=== PATIENT | female | born 1990 | race Caucasian/White ===

== ENCOUNTER 2018-10-25 22:54 | Emergency (ER) | payer OTHER ==
[2018-10-25 23:47] VITALS: BMI 35.8
--- NOTE | 2018-10-26 00:39 | PDOC ---
History of Present Illness - General Chief Complaint: Pain Stated Complaint: PAIN Time Seen by Provider: 10/26/18 00:32 - History of Present Illness Initial Comments: 10/26/18 00:39 28 yo F with no significant pmh who p/w suprapubic pain and fever x 2 days. Patient with 2 days of dysuria, suprpapubic discomfort, increased urinary frequency, and fevers. Also endorses nausea without vomiting, decreased PO intake, and lower back pain x 2 days. Reports h/o 2 UTIs in past. currently menstruating. Denies PO medication intake. Patient denies COLON, vision change, palpitations, cough, wheezing, orthopena, PND , leg swelling/pain, CP, SOB, uhematuria, BPR, vaginal discharge/irritation/ itching, diarrhea, constipation, lightheadedness, weakness, sensory changes. PMHx: as noted above. H/o laproscopic procedure pelvic. ROS: as noted SHx: Denies Etoh, IVDA, Tobacco use Allergies: Sulfa medications Past History - Past Medical History Allergies/Adverse Reactions: Allergies Allergy/AdvReac Type Severity Reaction Status Date / Time Sulfa (Sulfonamide Allergy Verified 10/26/18 01:28 Antibiotics) Home Medications: Ambulatory Orders Ciprofloxacin [Cipro -] 500 mg PO Q12H #14 tablet MDD 2 tab 10/26/18 Ibuprofen 600 mg PO QID PRN #28 tablet MDD 4 tab 10/26/18 Ondansetron [Zofran Odt -] 4 mg SL BID #14 od.tablet 10/26/18 - Suicide/Smoking/Psychosocial Hx Smoking History: Never smoked Have you smoked in the past 12 months: No Information on smoking cessation initiated: No Hx Alcohol Use: No Drug/Substance Use Hx: No Review of Systems - Review of Systems Comments:: 10/26/18 00:38 GENERAL/CONSTITUTIONAL: + fever. No chills. No weakness. HEAD, EYES, EARS, NOSE AND THROAT: No change in vision. No ear pain or discharge. No sore throat. CARDIOVASCULAR: No chest pain or shortness of breath RESPIRATORY: No cough, wheezing, or hemoptysis. GASTROINTESTINAL: +nausea. No vomiting, diarrhea or constipation. GENITOURINARY: + dysuria, frequency, and change in urination. MUSCULOSKELETAL: No joint or muscle swelling or pain. No neck or back pain. SKIN: No rash NEUROLOGIC: No headache, vertigo, loss of consciousness, or change in strength/ sensation. ENDOCRINE: No increased thirst. No abnormal weight change HEMATOLOGIC/LYMPHATIC: No anemia, easy bleeding, or history of blood clots. ALLERGIC/IMMUNOLOGIC: No hives or skin allergy. *Physical Exam - Vital Signs Last Vital Signs Temp Pulse Resp BP Pulse Ox 101.1 F H 100 H 20 107/70 98 10/25/18 23:45 10/25/18 23:45 10/25/18 23:45 10/25/18 23:45 10/25/18 23:45 - Physical Exam Comments: 10/26/18 00:38 GENERAL: Awake, alert, and fully oriented, in no acute distress HEAD: No signs of trauma, normocephalic, atraumatic EYES: PERRLA, EOMI, sclera anicteric, conjunctiva clear ENT:Hearing grossly normal, nares patent, oropharynx clear without exudates. Moist mucosa NECK: Normal ROM, supple, no lymphadenopathy, JVD, or masses LUNGS: No distress, speaks full sentences, clear to auscultation bilaterally HEART: Regular rate and rhythm, normal S1 and S2, no murmurs, rubs or gallops, peripheral pulses normal and equal bilaterally. ABDOMEN:+ suprpapubic ttp, and right sided flank ttp. Soft, NDS, normoactive bowel sounds. No guarding, no rebound. No masses EXTREMITIES : Normal inspection, Normal range of motion, no edema. No clubbing or cyanosis. NEUROLOGICAL: Cranial nerves II through XII grossly intact. Normal speech, normal gait, no focal sensorimotor deficits SKIN: Warm, Dry, normal turgor, no rashes or lesions noted ED Treatment Course - LABORATORY CBC & Chemistry Diagram: 10/26/18 00:52 10/26/18 01:18 - RADIOLOGY Radiograph Interpretation: 10/26/18 04:57 Patient Information: : 1990 Order Type: Preliminary Name: LESLEY SIERRA Sex: F Study Description: CT ABDOMEN AND PELVIS Modality: CT Location: [facility] Referring Physician: BARB LAM Comments: Genny Simon MD wrote on Oct 26, 2018 at 04:00 AM: Referring Physician: BARB LAM Patient Name: GRACY SUTTON THIS IS A PRELIMINARY REPORT FROM IMAGING GRANULATOR OPERATOR DATE OF SERVICE: 2018-10-26 03:20:48 IMAGES: [id number] EXAM: CT ABDOMEN AND PELVIS WITHOUT CONTRAST 4.1 x 2.7 x 3.7 cm soft tissue density posterior cul-de-sac, possibly normal small bowel loops but cannot exclude mass. Consider ultrasound correlation. Unremarkable uterus and ovaries. Small stones versus artifacts right kidney. No ureterolithiasis or obstructive uropathy. No bladder calculi. Unremarkable pancreas and gallbladder. No bowel obstruction, colitis, free fluid or free air. Normal appendix. Few diverticula colon. Hepatomegaly. CONFIDENTIALITY NOTICE: This information is intended only for the use of the recipient(s) named above. If you are not the intended recipient, or a person responsible for delivering it to the intended recipient, you are hereby notified that any disclosure, copying, distribution or use of any of the information contained in or attached to this transmission is STRICTLY PROHIBITED. If you have received this transmission in error, please immediately notify Imaging Director Religious Education and destroy the original transmission and its attachments without saving them in any manner [address] [facility] [address] [place] [address] Phone: [phone]) Fax: Email: [email or web address]: [email or web address] Patient Information: : 1990 Order Type: Preliminary Name: LESLEY SIERRA Sex: F Study Description: CT ABDOMEN AND PELVIS Modality: CT Location: [facility] Referring Physician: BARB LAM Small hiatal hernia. Minimal levoscoliosis versus positioning lumbar spine. One or more of the following dose reduction techniques were used: automated exposure control, adjustment of the mA and/or kV according to patient size, use of iterative reconstructive technique. THIS DOCUMENT HAS BEEN ELECTRONICALLY SIGNED Genny Simon M.D. 10/26/2018 03:59 REJI Stevenson. Please call Imaging Director Religious Education [phone]) with questions. Genny Simon MD Clinicians - Please contact Imaging Director Religious Education with further questions at [phone] Patients - Please contact your Ordering Provider with questions. CONFIDENTIALITY NOTICE: This information is intended only for the Medical Decision Making - Medical Decision Making 10/26/18 00:38 28 yo F with no significant pmh who p/w 2 days of dysuria, suprpapubic discomfort, nausea, and fevers. 2/4 SIRS criteria, Oral temp 101.1, HR 100, vitals otherwise wnl, A&Ox3. Physical exam with suprapubic and R sided flank ttp. Denies CP, SOB, hematuria, BPR, vaginal discharge/irritation/itching, diarrhea, constipation, lightheadedness, weakness, sensory changes. Likely pyelonephritis. vs. cystitis. Will evaluate for obstructive uropathy, hyperglycemia. Ed Course: Sepsis Protocol, NS, Tylenol EKG: Will assess for VBI/TIA, cardiac dysarrythmias, hypoglycemia, electrolyte abnml, metabolic and toxic derangements, acid-base disturbances, infection. 10/26/18 03:07 Laboratory Tests 10/26/18 10/26/18 10/26/18 00:52 00:52 01:18 WBC 13.8 H BUN 10 Creatinine 0.8 Serum , Qual Urine Color Yellow Urine Blood 3+ H Urine Nitrite Negative Urine Bilirubin Negative Ur Leukocyte Esterase 3+ H Urine WBC (Auto) 8 10/26/18 01:18 WBC BUN Creatinine Serum , Qual Negative Urine Color Urine Blood Urine Nitrite Urine Bilirubin Ur Leukocyte Esterase Urine WBC (Auto) Rocephin 1 g 10/26/18 04:57 CT AP: 4.1 x 2.7 x 3.7 cm soft tissue density posterior cul-de-sac, possibly normal small bowel loops but cannot exclude mass. Consider ultrasound correlation. Unremarkable uterus and ovaries. Small stones versus artifacts right kidney. No ureterolithiasis or obstructive uropathy. No bladder calculi. Unremarkable pancreas and gallbladder. No bowel obstruction, colitis, free fluid or free air. Normal appendix. Few diverticula colon. Hepatomegaly. 10/26/18 05:08 Patient pain and nausea improved ciprofloxacin 500 BID sent to pharmacy Stable for d/c with return precautions Advised to f/u PMD and urology *DC/Admit/Observation/Transfer Diagnosis at time of Disposition: Pyelonephritis - Discharge Dispostion Condition at time of disposition: Stable Decision to Admit order: No - Prescriptions Prescriptions: Ciprofloxacin [Cipro -] 500 mg PO Q12H #14 tablet MDD 2 tab Ibuprofen 600 mg PO QID PRN #28 tablet MDD 4 tab PRN Reason: Pain Ondansetron [Zofran Odt -] 4 mg SL BID #14 od.tablet - Referrals Referrals: ON STAFF,NOT [Primary Care Provider] - Elijah Croft MD [Staff Physician] - - Patient Instructions Printed Discharge Instructions: DI for Urinary Tract Infection (UTI) Additional Instructions: Please return to the emergency department with any new or worsening symptoms or concerns. Please follow up with your primary care physician within 72 hours. Please take Ciprofloxacin 500 mg twice daily for 7 days. Take motrin and zofran as needed and prescribed for symptoms Please follow up with urology physician within 1-3 days. - Post Discharge Activity
[2018-10-26] MEDS ORDERED: SODIUM CHLORIDE IV ONE (00:50)
[2018-10-26] MEDS ORDERED: ONDANSETRON 4 MG/2 ML VIAL IVPUSH ONE (01:28)
[2018-10-26] MEDS ORDERED: ACETAMINOPHEN 1000 MG/100 ML VIAL (NON FORMULARY) IVPB ONE (01:28)
--- NOTE | 2018-10-26 01:28 | PDOC ---
Documentation entered by Colleen Ojeda SCRIBE, acting as scribe for Jennifer Escudero DO. Jennifer Escudero DO: This documentation has been prepared by the Lynette gregg Daisy, SCRIBE, under my direction and personally reviewed by me in its entirety. I confirm that the documentation accurately reflects all work, treatment, procedures, and medical decision making performed by me. Attending Attestation - Resident Resident Name: Hema Nicole - ED Attending Attestation I have performed the following: I have examined & evaluated the patient, The case was reviewed & discussed with the resident, I agree w/resident's findings & plan - HPI HPI: 10/26/18 01:03 The patient is a 28 YOF with no PMH who presents with suprapubic discomfort, fever, low back pain, dysuria, frequency, and nausea for the past 2 days. Patient reports having 2 UTIs in the past. She is currently on her menstrual period. Denies cp, sob, vomiting, diarrhea, or constipation. Allergies: NKDA - Physicial Exam PE: 10/26/18 01:02 ADULT PHYSICAL EXAM Constitutional: Awake, alert, oriented. No acute distress. Speaking in full sentences. Cardiovascular: Regular rate. Regular rhythm. S1, S2 regular. Distal pulses are 2+ and symmetric. Pulmonary/Chest: No evidence of respiratory distress. Clear to auscultation bilaterally No wheezing, rales or rhonchi. Abdominal: (+) Diffuse abdominal tenderness, worse in the suprapubic region. Soft and non-distended. No rebound, guarding or rigidity. Musculoskeletal: No edema. No cyanosis. No clubbing. Full range of motion in all extremities. No calf tenderness. Radial/pedal pulses are intact and 2+ bilaterally Back: (+) right low back tenderness. No CVA tenderness. Skin: Skin is warm and dry. Neurological: Alert and oriented to person, place, and time. Cranial nerves II -XII are grossly intact. Normal speech. Strength is grossly symmetric. No sensory deficits. Psychiatric: Good eye contact. Normal interaction, affect and behavior. - Medical Decision Making 10/26/18 01:25 a/p: 28yo female with urinary freq, burning, and lower abd pain, R flank pain -fever started today -lower abd pain, nausea, R flank pain -hx of uti x2 in the past -allergy to sulfa -suprapubic ttp -concern for pyelo vs complicated uti vs infected stone -will send labs, ct abd/pelvis, ua -will give ivf hydration, tylenol, zofran for nausea -will monitor and reassess 10/26/18 01:57 elevated wbc ua and chem pending ct abd/pelvis pending 10/26/18 02:10 uti on labs, elevated wbc iv abx - rocephin ordered
[2018-10-26] MEDS ORDERED: ACETAMINOPHEN INJECTION 100 ML IVPB ONE (01:29)
[2018-10-26] MEDS ORDERED: ONDANSETRON 4 MG/2 ML VIAL ONE (01:29)
[2018-10-26 01:33] LABS: BASO % 0.4 % (0-2.0); EOS % 0.4 % (0-4.5); HEMATOCRIT 35.7 % (32.4-45.2); HEMOGLOBIN 11.6 GM/dL (10.7-15.3); LYMPH % 13.3 % (8-40); MCH 25.2 pg (25.7-33.7); MCHC 32.4 g/dl (32.0-36.0); MEAN CELL VOLUME 77.8 fl (80-96); MONO % 7.4 % (3.8-10.2); NEUT % 78.5 % (42.8-82.8); PLATELET COUNT 357 K/MM3 (134-434); RBC 4.59 M/mm3 (3.60-5.2); RDW 15.1 % (11.6-15.6); WHITE BLOOD COUNT 13.8 K/mm3 (4.0-10.0)
[2018-10-26 01:38] LABS: EPI CELLS 3.1 /HPF (0-5/HPF); URINE APPEARANCE CLEAR; URINE BACTERIA 40.8 /hpf (NEGATIVE); URINE BILIRUBIN NEGATIVE (NEGATIVE); URINE CASTS 1 /lpf (0-8); URINE COLOR YELLOW; URINE GLUCOSE (UA) NEGATIVE (NEGATIVE); URINE KETONE NEGATIVE (NEGATIVE); URINE LEUK ESTERASE 3+ (NEGATIVE); URINE NITRITE NEGATIVE (NEGATIVE); URINE PROTEIN NEGATIVE (NEGATIVE); URINE UROBILINOGEN 0.2 mg/dL (0.2-1.0); URINE WBC 8 /hpf (0-5)
[2018-10-26 02:06] LABS: URINE RBC 5 /hpf (0-4); YEAST NONE SEEN (NEGATIVE)
[2018-10-26] MEDS ORDERED: CEFTRIAXONE 1 GM in DEXTROSE 5%-WATER - 100 ML IVPB ONE (02:10)
[2018-10-26] MEDS ORDERED: CEFTRIAXONE 1 GM/50 ML BAG ONE (02:13)
[2018-10-26 02:29] LABS: ALBUMIN 3.7 g/dl (3.4-5.0); ALK PHOS 76 U/L (45-117); ANION GAP 5 MMOL/L (8-16); BILIRUBIN,TOTAL 0.5 mg/dL (0.2-1); BLOOD UREA NITROGEN 10 mg/dL (7-18); CALCIUM 9.3 mg/dL (8.5-10.1); CHLORIDE 106 mmol/L (98-107); CO2 24 mmol/L (21-32); CREATININE 0.8 mg/dL (0.55-1.3); GLUCOSE,RANDOM 103 mg/dL (74-106); SGOT/AST 12 U/L (15-37); SGPT/ALT 20 U/L (13-61); SODIUM 135 mmol/L (136-145); TOT PROT 7.7 g/dl (6.4-8.2)
[2018-10-26] MEDS ORDERED: KETOROLAC TROMETHAMINE 30 MG/1 ML VIAL ONE (03:54)
[2018-10-26] MEDS ORDERED: KETOROLAC TROMETHAMINE 30 MG/1 ML VIAL IVPUSH ONE (03:54)
[2018-10-26 05:20] VITALS: BP 105/61; PULSE 74; TEMP 98
--- NOTE | 2018-10-26 10:36 | EKG ---
Test Reason : Blood Pressure : / mmHG Vent. Rate : 089 BPM Atrial Rate : 089 BPM P-R Int : 128 ms QRS Dur : 080 ms QT Int : 350 ms P-R-T Axes : 035 011 025 degrees QTc Int : 425 ms NORMAL SINUS RHYTHM POSSIBLE LEFT ATRIAL ENLARGEMENT NO PREVIOUS ECGS AVAILABLE Confirmed by ANDREAS DE LOS SANTOS MD ([id number]) on 10/26/2018 10:35:37 AM Referred By: Confirmed By:ANDREAS DE LOS SANTOS MD
== END 2018-10-26 05:20 | disposition home or self-care (01) ==
LOC: JER 22:54
PROC: 3E0337Z Introduction of Electrolytic and Water Balance Substance into Peripheral Vein, Percutaneous Approach (ICD-10-PCS; principal; 2018-10-25)
PROC: 3E03329 Introduction of Other Anti-infective into Peripheral Vein, Percutaneous Approach (ICD-10-PCS; 2018-10-25)
PROC: 3E033NZ Introduction of Analgesics, Hypnotics, Sedatives into Peripheral Vein, Percutaneous Approach (ICD-10-PCS; 2018-10-25)
PROC: 3E0333Z Introduction of Anti-inflammatory into Peripheral Vein, Percutaneous Approach (ICD-10-PCS; 2018-10-25)
PROC: 3E033GC Introduction of Other Therapeutic Substance into Peripheral Vein, Percutaneous Approach (ICD-10-PCS; 2018-10-25)
DX: N39.0 Urinary tract infection, site not specified (principal); N12 Tubulo-interstitial nephritis, not specified as acute or chronic
CPT/HCPCS: 36415; 74176-TC; 80053; 81003; 83605; 84703; 85025; 87040; 87086; 93005; 93010; 99283-25; J0131; J7030

== ENCOUNTER 2021-04-11 21:59 | Emergency (ER) | payer OTHER ==
[2021-04-11 22:14] VITALS: BP 113/72; PULSE 71; TEMP 98.6; BMI 24.1
[2021-04-11] MEDS ORDERED: DEXAMETHASONE 4 MG TABLET (FP) PO ONE (22:39)
[2021-04-11] MEDS ORDERED: FAMOTIDINE 10 MG TABLET PO ONE (22:39)
[2021-04-11] MEDS ORDERED: diphenhydrAMINE HCL 25 MG CAPSULE (FP) PO ONE ×2 (22:39→22:56)
[2021-04-11] MEDS ORDERED: FAMOTIDINE 10 MG TABLET ONE (22:55)
[2021-04-11] MEDS ORDERED: DEXAMETHASONE SOD PHOSPHATE 10 MG/1 ML VIAL ONE (22:55)
== END 2021-04-12 00:28 | disposition home or self-care (01) ==
LOC: JER 21:59
DX: R21 Rash and other nonspecific skin eruption (principal)
CPT/HCPCS: 99283-25

== ENCOUNTER 2024-05-31 12:37 | Emergency (ER) | payer OTHER ==
[2024-05-31 12:45] VITALS: BP 117/80; PULSE 85; RESP 19; TEMP 98.4; BMI 25.8
[2024-05-31] MEDS ORDERED: ACETAMINOPHEN 500 MG TABLET (FP) ONE (13:15)
[2024-05-31] MEDS: ACETAMINOPHEN 500 MG TABLET (FP) PO ONE (13:24)
[2024-05-31 13:34] LABS: EPI CELLS 25 /uL (0-25.1); HYALINE CASTS 3 /uL (0-3.1); URINE APPEARANCE CLEAR; URINE BILIRUBIN NEGATIVE (NEGATIVE); URINE COLOR DK YELLOW; URINE GLUCOSE (UA) NEGATIVE (NEGATIVE); URINE KETONE TRACE (NEGATIVE); URINE LEUK ESTERASE 1+ (NEGATIVE); URINE NITRITE POSITIVE (NEGATIVE); URINE PROTEIN NEGATIVE (NEGATIVE); URINE WBC 160 /uL (0-25.8)
[2024-05-31 14:09] LABS: URINE BACTERIA 105 /uL (0-1359); URINE RBC 50 /uL (0-23.9)
[2024-05-31 14:11] LABS: YEAST NONE SEEN (NEGATIVE)
[2024-05-31] MEDS: CEFPODOXIME PROXETIL 100 MG TABLET PO ONE (14:31)
[2024-05-31 15:17] LABS: HIV INTERPRETATION NEGATIVE (NEGATIVE)
== END 2024-05-31 14:57 | disposition home or self-care (01) ==
LOC: JER 12:37
DX: N12 Tubulo-interstitial nephritis, not specified as acute or chronic (principal); R30.0 Dysuria; R31.9 Hematuria, unspecified; R10.30 Lower abdominal pain, unspecified
CPT/HCPCS: 36415; 81003; 84703; 86803; 87086; 87389; 99283-25